=== PATIENT | male | born 1945 | race Two or more races ===

== ENCOUNTER 2016-07-05 07:38 | Day surgery (SDC) | payer OTHER ==
[~2016-07-05] VITALS: Ht 165.1 cm; Wt 71.9 kg
--- NOTE | ~2016-07-05 | OR ---
ADMIT: 07/05/2016 RM/LOC: [facility] MR#: [id number] [address] [place] [address] [place] [id number] Operative/Delivery Room Report SEX: M AGE: 71 : 1945 SURGERY DATE: 07/05/2016 SURGEON: Torsten Man MD PREOPERATIVE DIAGNOSIS: Right large acute on chronic rotator cuff tear. POSTOPERATIVE DIAGNOSIS: Right massive rotator cuff tear, non repairable. PROCEDURES: 1. Right shoulder diagnostic arthroscopy. 2. Arthroscopic extensive debridement. 3. Arthroscopic limited subacromial decompression. FAST FOOD WORKER: Wilbert Guzman PA-C ANESTHESIA: General. COMPLICATIONS: None. DESCRIPTION OF PROCEDURE: The patient was taken to the operating room, received a general anesthetic, placed in semi beach chair position. Right shoulder was prepped and draped in a standard fashion. A posterior portal was made. The scope was introduced to the glenohumeral joint. The humeral head was normal, glenoid normal, anterior labrum normal. There was a chronic biceps tendon rupture. There was diffuse synovitis throughout the shoulder joint. We made an anterior portal, debrided the anterior labrum. The subscap was attached. There was a massive cuff tear with significant retraction. At this point, I put the scope in the subacromial space. We debrided the rotator cuff, tried to mobilize the cuff, again it was found to be significantly atrophied past the level of the glenoid and non mobile. The teres tendon was attached posteriorly and the subscap anteriorly, but the supra and infraspinatus were completely torn and retracted. We did a debridement of any frayed tissue. He has a couple spurs off the AC joint rubbing on the humeral head which we did a subacromial decompression of. We did not release the CA ligament. At that point, we withdrew arthroscopic equipment and all excess fluid, closed with 4- 0 nylon, injected the field with Marcaine, applied sterile dressings. Placed in an arm sling. Taken to recovery room in stable condition. No complications. Torsten Man MD/ sophia JOB #: [id number] CC: Torsten Man, Attending Physician Chante Lyn, Family Physician
--- NOTE | 2016-07-19 21:12 | HP ---
ADMIT: 07/05/2016 RM/LOC: [facility] MR#: [id number] [address] [address] [address] [address] Pre-OP History and Physical SEX: M AGE: 71 : 1945 DATE OF SERVICE: CHIEF COMPLAINT: Right shoulder pain. HISTORY OF PRESENT ILLNESS: The patient is a 71-year-old male, had an injury to his right shoulder at work. He has had right shoulder pain for a long period of time. He has been scheduled multiple times for right shoulder surgery. It has been cancelled multiple times for medical issues. He was scheduled a week ago and his blood pressure excessively elevated. He has now been seen by primary care, again cleared for surgery. PAST MEDICAL HISTORY: Past medical problems include diabetes, hypertension, hypercholesterolemia, chronic atrial fibrillation, reflux. MEDICATIONS: Include: 1. Eliquis. 2. Zebeta. 3. Tylenol. ALLERGIES: NONE. SOCIAL HISTORY: Works at [employer]. REVIEW OF SYSTEMS: Negative. PHYSICAL EXAMINATION: Healthy-appearing male. He has significant right rotator cuff weakness. He can elevate to about 90, externally rotate to 60, internally rotate to his body. Arm is neurovascularly intact. No neck pain. IMAGING DATA: MRI again shows a large rotator cuff tear with a fair amount of retraction, question whether it is repairable. DIAGNOSTIC DATA: X-rays AP, scapular, Y, show some narrowing of the subacromial space, advanced AC arthritis. ADMIT: 07/05/2016 RM/LOC: [facility] MR#: [id number] [address] [address] [address] [address] Pre-OP History and Physical SEX: M AGE: 71 : 1945 IMPRESSION: 1. Acute on chronic right rotator cuff tear. 2. Acromioclavicular arthritis, symptomatic. PLAN: Again, we talked about different options. He does have a very large rotator cuff tear. He has been cancelled multiple times. He has now again been cleared for surgery. Plan on doing right shoulder arthroscopy, evaluate his rotator cuff to see if it is repairable. If it is repairable, plan on proceeding with right rotator cuff repair, decompression, distal clavicle excision. If it is not repairable, left tibia rotator cuff debridement. He is aware of the risks, benefits, and options and agreed to proceed. He has been cleared by medical standpoint. He has held his Eliquis. Torsten Man MD/ sophia JOB #: [id number] CC: Torsten Man, Attending Physician UNKNOWN, Family Physician
== END 2016-07-05 14:36 | disposition home or self-care (01) ==
LOC: SSS 07:38
PROC: 0RBJ4ZZ Excision of Right Shoulder Joint, Percutaneous Endoscopic Approach (ICD-10-PCS; principal; 2016-07-05)
DX: M75.101 Unspecified rotator cuff tear or rupture of right shoulder, not specified as traumatic (principal); M19.011 Primary osteoarthritis, right shoulder; I10 Essential (primary) hypertension; F17.210 Nicotine dependence, cigarettes, uncomplicated; E11.9 Type 2 diabetes mellitus without complications; E78.00 Pure hypercholesterolemia, unspecified; I48.2 Chronic atrial fibrillation; K21.9 Gastro-esophageal reflux disease without esophagitis; Z79.899 Other long term (current) drug therapy